=== PATIENT | male | born 1965 | race African-American/Black ===

== ENCOUNTER 2017-02-04 00:01 | Inpatient (IN) | payer OTHER ==
--- NOTE | 2017-02-04 00:38 | HP ---
COWS - Scale Resting Pulse: 1= DE 81-100 Sweatin=Flushed/Facial Moisture Restless Observation: 3= Extraneous Movement Pupil Size: 2= Moderately Dilated Bone or Joint Aches: 2= Severe Diffuse Aches Runny Nose/ Eye Tearin= Runny Nose/Eyes GI Upset > 30mins: 3= Vomiting/Diarrhea Tremor Observation: 2= Slight Tremor Visible Yawning Observation: 2= >3x During Session Anxiety or Irritability: 2=Irritable/Anxious Goose Flesh Skin: 0=Smooth Skin COWS Score: 21 CIWA Score - CIWA Score Nausea/Vomitin Muscle Tremors: 3 Anxiety: 3 Agitation: 3 Paroxysmal Sweats: 2 Orientation: 0-Oriented Tacttile Disturbances: 2-Mild Itch/Numbness/Burn Auditory Disturbances: 2-Mild Harshness/Frighten Visual Disturbances: 1-Very Mild Sensitivity Headache: 2-Mild CIWA-Ar Total Score: 21 Admission ROS BHS - HPI Chief Complaint: i need help to stop using heroin,alcohol,cocaine and marijuana Allergies/Adverse Reactions: Allergies Allergy/AdvReac Type Severity Reaction Status Date / Time No Known Allergies Allergy Verified 02/09/16 12:10 History of Present Illness: this 52 years old male iwth heroin,alcohol,cocaine and marijuana dependence, seeking detox,last detox [facility] 03/03/16 o 03/08/16 hypertension nicotine dependence longest period of sobriety 3 years Exam Limitations: No Limitations - Ebola screening Have you traveled outside of the country in the last 21 days: No (N) Have you had contact with anyone from an Ebola affected area: No Do you have a fever: No - Review of Systems Constitutional: Loss of Appetite, Malaise, Night Sweats, Changes in sleep, Weakness, Unintentional Wgt. Loss EENT: reports: Tearing, Nose Congestion Respiratory: reports: No Symptoms reported Cardiac: reports: No Symptoms Reported GI: reports: Diarrhea, Nausea, Vomiting, Abdominal cramping : reports: No Symptoms Reported Musculoskeletal: reports: Back Pain, Joint Pain, Muscle Pain, Joint Stiffness Integumentary: reports: Dryness Neuro: reports: Headache, Tremors Endocrine: reports: No Symptoms Reported Hematology: reports: No Symptoms Reported Psychiatric: reports: No Sypmtoms Reported, Judgement Intact, Mood/Affect Appropiate, Orientated x3 Patient History - Patient Medical History Hx Anemia: No Hx Asthma: No Hx Chronic Obstructive Pulmonary Disease (COPD): No Hx Cancer: No Hx Cardiac Disorders: No Hx Congestive Heart Failure: No Hx Hypertension: Yes (not currently on meds.) Hx Hypercholesterolemia: No Hx Pacemaker: No HX Cerebrovascular Accident: No Hx Seizures: No Hx Dementia: No Hx Diabetes: No Hx Gastrointestinal Disorders: No Hx Liver Disease: No Hx Genitourinary Disorders: No Hx Sexually Transmitted Disorders: No Hx Renal Disease (ESRD): No Hx Thyroid Disease: No Hx Human Immunodeficiency Virus (HIV): No (NEGATIVE HX last 2015 ) Hx Hepatitis C: No Hx Depression: No Hx Suicide Attempt: No Hx Bipolar Disorder: No Hx Schizophrenia: No Other Medical History: no suicidal,no homicidal - Patient Surgical History Past Surgical History: No Hx Neurologic Surgery: No Hx Cataract Extraction: No Hx Cardiac Surgery: No Hx Lung Surgery: No Hx Breast Surgery: No Hx Breast Biopsy: No Hx Abdominal Surgery: No Hx Appendectomy: No Hx Cholecystectomy: No Hx Genitourinary Surgery: No Hx Section: No Hx Orthopedic Surgery: No Anesthesia Reaction: No - PPD History Previous Implant?: Yes Documented Results: Negative w/o proof Date: 08/17/15 Results: 0 mm PPD to be Administered?: Yes - Smoking Cessation Smoking history: Current every day smoker Have you smoked in the past 12 months: Yes Aproximately how many cigarettes per day: 10 Hx Chewing Tobacco Use: No Initiated information on smoking cessation: Yes 'Breaking Loose' booklet given: 02/04/17 - Substance & Tx. History Hx Alcohol Use: Yes Hx Substance Use: Yes Substance Use Type: Alcohol, Cocaine, Heroin, Marijuana Hx Substance Use Treatment: Yes ([facility] 03/03/16 to 03/08/16) - Substances Abused Heroin Route: Inhalation Frequency: Daily Amount used: 6 bags/day Age of first use: 24 Date of Last Use: 02/03/17 Alcohol Route: Oral Frequency: Daily Amount used: 1pint of tj/22 ozs of beer Age of first use: 17 Date of Last Use: 02/03/17 Cocaine Route: Smoking Frequency: 3-6 times per week Amount used: 30$ Age of first use: 29 Date of Last Use: 02/03/17 Marijuana/Hashish Route: Smoking Frequency: Daily Amount used: 10$ Age of first use: 17 Date of Last Use: 02/03/17 Family Disease History - Family Disease History Family Disease History: Heart Disease: Father (HTN,CKD,alcohol,) Admission Physical Exam [facility] - Vital Signs Vital Signs: Vital Signs Temperature 98.3 F 02/04/17 00:55 Pulse Rate 88 02/04/17 00:55 Respiratory Rate 18 02/04/17 00:55 Blood Pressure 154/105 02/04/17 00:55 O2 Sat by Pulse Oximetry (%) - Physical General Appearance: Yes: Moderate Distress, Tremorous, Irritable, Sweating, Anxious HEENTM: Yes: Normal ENT Inspection, FRANCI, Pharynx Normal Respiratory: Yes: Within Normal Limits, Lungs Clear, Normal Breath Sounds Neck: Yes: Within Normal Limits, Supple, Trachea in good position Breast: Yes: Within Normal Limits Cardiology: Yes: Within Normal Limits, Regular Rhythm, Regular Rate, S1, S2 Abdominal: Yes: Within Normal Limits, Normal Bowel Sounds, Non Tender, Flat, Soft Genitourinary: Yes: Within Normal Limits Back: Yes: Muscle Spasm Musculoskeletal: Yes: Back pain, Joint Stiffness, Muscle Pain Extremities: Yes: Within Normal Limits, Normal Range of Motion, Tremors Neurological: Yes: branch sales and service representative II-XII NML intact, Alert, Motor Strength 5/5 Integumentary: Yes: Dry Lymphatic: Yes: Within Normal Limits - Diagnostic (1) Opioid dependence with withdrawal Current Visit: No Status: Acute (2) Alcohol dependence with uncomplicated withdrawal Current Visit: No Status: Acute (3) Cannabis dependence, uncomplicated Current Visit: No Status: Acute (4) Cocaine dependence, uncomplicated Current Visit: No Status: Acute (5) HTN (hypertension) Current Visit: No Status: Chronic Qualifiers: Hypertension type: essential hypertension (6) Weight loss Current Visit: Yes Status: Acute Cleared for Admission [facility] - Detox or Rehab [facility] Level of Care: Medically Managed Detox Regimen/Protocol: Methadone/Librium S Breath Alcohol Content Breath Alcohol Content: 0 Vital Signs - Vital Signs Vital Signs Refused: No Temperature: 98.3 F Temperature Source: Oral Pulse Rate: 88 Respiratory Rate: 18 Blood Pressure: 154/105 BP Location: Left Arm Blood Pressure Position: Sitting - Height Height: 5 ft 8 in - Weight Weight: 175 lb Body Mass Index (BMI): 26.6 Urine Drug Screen - Test Device Lot Number: [id number] Expiration Date: 10/11/18 - Control Is Test Valid: Yes - Results Drug Screen Negative: No Urine Drug Screen Results: THC-Marijuana, SHARI-Cocaine, OPI-Opiates, BZO- Benzodiazepines
[2017-02-04 00:55] VITALS: BMI 26.6
[2017-02-04] MEDS ORDERED: guaiFENesin/D-METHORPHAN HB 10 ML UNIT-DOSE CUPS PO PRN (01:06)
[2017-02-04] MEDS ORDERED: MAGNESIUM HYDROX 2400MG/30ML ORAL SUSPENSION 30 ML CUP PO PRN (01:06)
[2017-02-04] MEDS ORDERED: chlordiazePOXIDE HCL 25 MG CAPSULE PO ONE (01:06)
[2017-02-04] MEDS ORDERED: chlordiazePOXIDE HCL 25 MG CAPSULE PO PRN (01:06)
[2017-02-04] MEDS ORDERED: MENTHOL/PHENOL 1 EACH UD MM PRN (01:06)
[2017-02-04] MEDS ORDERED: LOPERAMIDE HCL 2 MG CAPSULE PO PRN (01:06)
[2017-02-04] MEDS ORDERED: MAGNESIUM CITRATE 300 ML BOTTLE PO PRN (01:06)
[2017-02-04] MEDS ORDERED: MAG HYDROX/AL HYDROX/SIMETH 30 ML UNIT-DOSE CUP PO PRN (01:06)
[2017-02-04] MEDS ORDERED: IBUPROFEN 400 MG TABLET (FP) PO PRN (01:06)
[2017-02-04] MEDS ORDERED: METHADONE HCL 10 MG TABLET (FOR DETOX USE ONLY) PO ONE ×3 (01:06→22:00)
[2017-02-04] MEDS ORDERED: P-EPHED 60MG/TRIPROLIDI 2.5MG TABLET PO PRN (01:06)
[2017-02-04] MEDS ORDERED: hydrOXYzine PAMOATE 25 MG CAPSULE (FP) PO PRN (01:06)
[2017-02-04] MEDS: diphenhydrAMINE HCL 50 MG CAPSULE PO PRN ×2 (02:30→22:20)
[2017-02-04] MEDS: chlordiazePOXIDE HCL 25 MG CAPSULE PO SCH ×4 (06:25→22:19)
[2017-02-04] MEDS: amLODIPine BESYLATE 5 MG TABLET (FP) PO SCH (10:10)
[2017-02-04] MEDS: NICOTINE POLACRILEX 2 MG GUM BUC PRN ×2 (10:11→18:10)
[2017-02-04] MEDS: NICOTINE 21 MG/24 HOURS TOPICAL PATCH TD SCH (10:11)
[2017-02-04] MEDS: LISINOPRIL 20 MG TABLET (FP) PO SCH (10:11)
[2017-02-04] MEDS: PRENATAL VITAMINS W/ FOLIC ACID TABLET (FP) PO SCH (10:11)
--- NOTE | 2017-02-04 11:10 | PN ---
[facility] CIWA - CIWA Score Nausea/Vomitin-No Nausea/No Vomiting Muscle Tremors: 3 Anxiety: 4-Mod. Anxious/Guarded Agitation: 2 Paroxysmal Sweats: 3 Orientation: 0-Oriented Tacttile Disturbances: 2-Mild Itch/Numbness/Burn Auditory Disturbances: 0-None Visual Disturbances: 3-Moderate Sensitivity Headache: 0-None Present CIWA-Ar Total Score: 17 BHS COWS - Scale Resting Pulse: 0= OR 80 or Below Sweatin= Chills/Flushing Restless Observation: 1= Difficult to Sit Still Pupil Size: 0= Normal to Room Light Bone or Joint Aches: 2= Severe Diffuse Aches Runny Nose/ Eye Tearin= Nasal Congestion GI Upset > 30mins: 1= Stomach Cramp Tremor Observation of Outstretched Hands: 2= Slight Tremor Visible Yawning Observation: 1= 1-2x During Session Anxiety or Irritability: 2=Irritable/Anxious Goose Flesh Skin: 3=Piloerection COWS Score: 14 S Progress Note (SOAP) Subjective: Sweating, Tremors, Anxious. Objective: PT. A & O X 3, OBSERVED AMBULATING ON UNIT. NO ACUTE DISTRESS. 02/04/17 11:06 Vital Signs Temperature 97.3 F L 02/04/17 09:38 Pulse Rate 69 02/04/17 09:38 Respiratory Rate 18 02/04/17 09:38 Blood Pressure 160/98 02/04/17 09:38 O2 Sat by Pulse Oximetry (%) ADMISSION LAB RESULTS PENDING. Assessment: 02/04/17 11:11 WITHDRAWAL SYMPTOMS. Plan: CONTINUE DETOX. CONTINUE TO MONITOR BP.
--- NOTE | 2017-02-04 20:24 | EKG ---
Test Reason : Blood Pressure : / mmHG Vent. Rate : 069 BPM Atrial Rate : 069 BPM P-R Int : 188 ms QRS Dur : 100 ms QT Int : 410 ms P-R-T Axes : 073 019 -01 degrees QTc Int : 439 ms NORMAL SINUS RHYTHM POSSIBLE LEFT ATRIAL ENLARGEMENT LEFT VENTRICULAR HYPERTROPHY ST-T ABNORMALITIES ABNORMAL ECG NO PREVIOUS ECGS AVAILABLE REPEAT EKG IF CLINICALLY INDICATED Confirmed by STEPHANIE SILVESTRE MD ([id number]) on 02/04/2017 8:24:29 PM Referred By: Maninder Combs Confirmed By:STEPHANIE SILVESTRE MD
[2017-02-04] MEDS: THIAMINE HCL 100 MG TABLET (FP) PO SCH (22:18)
[2017-02-05] MEDS: chlordiazePOXIDE HCL 25 MG CAPSULE PO SCH ×4 (05:48→22:13)
[2017-02-05] MEDS ORDERED: METHADONE HCL 5 MG TABLET (FOR DETOX USE ONLY) PO SCH (10:00)
[2017-02-05 10:10] LABS: MCH 30.3 pg (25.7-33.7); MCHC 33.5 g/dl (32.0-35.9); MEAN CELL VOLUME 90.5 fl (80-96); PLATELET COUNT 207 K/MM3 (134-434); RDW 13.9 % (11.9-15.9); WHITE BLOOD COUNT 8.9 K/mm3 (4.0-10.0)
--- NOTE | 2017-02-05 10:12 | PN ---
[facility] CIWA - CIWA Score Nausea/Vomitin-No Nausea/No Vomiting Muscle Tremors: 3 Anxiety: 3 Agitation: 3 Paroxysmal Sweats: 1-Minimal Palms Moist Orientation: 0-Oriented Tacttile Disturbances: 0-None Auditory Disturbances: 0-None Visual Disturbances: 0-None Headache: 0-None Present CIWA-Ar Total Score: 10 S COWS - Scale Resting Pulse: 0= SC 80 or Below Sweatin= Chills/Flushing Restless Observation: 3= Extraneous Movement Pupil Size: 2= Moderately Dilated Bone or Joint Aches: 1= Mild Discomfort Runny Nose/ Eye Tearin= None GI Upset > 30mins: 0= None Tremor Observation of Outstretched Hands: 2= Slight Tremor Visible Yawning Observation: 2= >3x During Session Anxiety or Irritability: 2=Irritable/Anxious Goose Flesh Skin: 0=Smooth Skin COWS Score: 13 S Progress Note (SOAP) Subjective: ANXIETY,SWEATS,FATIGUE. Objective: 02/05/17 10:11 Vital Signs Temperature 96.7 F L 02/05/17 09:46 Pulse Rate 71 02/05/17 09:46 Respiratory Rate 18 02/05/17 09:46 Blood Pressure 140/96 02/05/17 09:46 O2 Sat by Pulse Oximetry (%) LABS PENDING Assessment: 02/05/17 10:11 WITHDRAWAL SX Plan: CONTINUE DETOX
[2017-02-05] MEDS: LISINOPRIL 20 MG TABLET (FP) PO SCH (10:16)
[2017-02-05] MEDS: amLODIPine BESYLATE 5 MG TABLET (FP) PO SCH (10:17)
[2017-02-05] MEDS: PRENATAL VITAMINS W/ FOLIC ACID TABLET (FP) PO SCH (10:17)
[2017-02-05] MEDS: NICOTINE 21 MG/24 HOURS TOPICAL PATCH TD SCH (10:17)
[2017-02-05 10:24] LABS: ALK PHOS 63 U/L (45-117); ANION GAP 6 (8-16); BILIRUBIN,TOTAL 0.3 mg/dL (0.2-1.0); CALCIUM 8.4 mg/dL (8.5-10.1); CO2 29 mmol/L (21-32); CREATININE 0.9 mg/dL (0.7-1.3); GLUCOSE,RANDOM 74 mg/dL (74-106); SGOT/AST 10 U/L (15-37); SGPT/ALT 17 U/L (12-78); TOT PROT 5.9 g/dl (6.4-8.2)
[2017-02-05 13:28] LABS: URINE APPEARANCE CLEAR; URINE BILIRUBIN NEGATIVE (NEGATIVE); URINE BLOOD NEGATIVE (NEGATIVE); URINE COLOR STRAW; URINE GLUCOSE (UA) NEGATIVE (NEGATIVE); URINE KETONE NEGATIVE (NEGATIVE); URINE NITRITE NEGATIVE (NEGATIVE); URINE PROTEIN NEGATIVE (NEGATIVE); URINE UROBILINOGEN NEGATIVE mg/dL (0.2-1.0)
[2017-02-05 17:20] LABS: URINE LEUK ESTERASE Negative (NEGATIVE)
[2017-02-05] MEDS: NICOTINE POLACRILEX 2 MG GUM BUC PRN (18:10)
[2017-02-05] MEDS: THIAMINE HCL 100 MG TABLET (FP) PO SCH (22:13)
[2017-02-05] MEDS: diphenhydrAMINE HCL 50 MG CAPSULE PO PRN (22:14)
[2017-02-06] MEDS: chlordiazePOXIDE 5 MG CAPSULE PO SCH ×4 (05:51→22:20)
--- NOTE | 2017-02-06 09:49 | PN ---
BHS Progress Note (SOAP) Subjective: DECREASED ANXIETY,SWEATS. ALERT O X 3. NAD. Objective: 02/06/17 09:48 Vital Signs Temperature 98.9 F 02/06/17 09:09 Pulse Rate 69 02/06/17 09:09 Respiratory Rate 22 02/06/17 09:09 Blood Pressure 149/91 02/06/17 09:09 O2 Sat by Pulse Oximetry (%) Laboratory Last Values WBC 8.9 K/mm3 (4.0-10.0) 02/05/17 07:00 RBC 4.17 M/mm3 (4.00-5.60) 02/05/17 07:00 Hgb 12.7 GM/dL (11.7-16.9) 02/05/17 07:00 Hct 37.8 % (35.4-49) 02/05/17 07:00 MCV 90.5 fl (80-96) 02/05/17 07:00 MCH 30.3 pg (25.7-33.7) 02/05/17 07:00 MCHC 33.5 g/dl (32.0-35.9) 02/05/17 07:00 RDW 13.9 % (11.9-15.9) 02/05/17 07:00 Plt Count 207 K/MM3 (134-434) 02/05/17 07:00 MPV 10.0 fl (7.5-11.1) 02/05/17 07:00 Sodium 140 mmol/L (136-145) 02/05/17 07:00 Potassium 4.3 mmol/L (3.5-5.1) 02/05/17 07:00 Chloride 105 mmol/L (98-107) 02/05/17 07:00 Carbon Dioxide 29 mmol/L (21-32) 02/05/17 07:00 Anion Gap 6 (8-16) L 02/05/17 07:00 BUN 12 mg/dL (7-18) 02/05/17 07:00 Creatinine 0.9 mg/dL (0.7-1.3) 02/05/17 07:00 Creat Clearance w eGFR > 60 (>60) 02/05/17 07:00 Random Glucose 74 mg/dL (74-106) 02/05/17 07:00 Calcium 8.4 mg/dL (8.5-10.1) L 02/05/17 07:00 Total Bilirubin 0.3 mg/dL (0.2-1.0) D 02/05/17 07:00 AST 10 U/L (15-37) L D 02/05/17 07:00 ALT 17 U/L (12-78) 02/05/17 07:00 Alkaline Phosphatase 63 U/L (45-117) 02/05/17 07:00 Total Protein 5.9 g/dl (6.4-8.2) L 02/05/17 07:00 Albumin 3.0 g/dl (3.4-5.0) L 02/05/17 07:00 Urine Color Straw 02/05/17 09:50 Urine Appearance Clear 02/05/17 09:50 Urine pH 6.0 (5.0-8.0) 02/05/17 09:50 Ur Specific [place] <= 1.005 (1.005-1.025) 02/05/17 09:50 Urine Protein Negative (NEGATIVE) 02/05/17 09:50 Urine Glucose (UA) Negative (NEGATIVE) 02/05/17 09:50 Urine Ketones Negative (NEGATIVE) 02/05/17 09:50 Urine Blood Negative (NEGATIVE) 02/05/17 09:50 Urine Nitrite Negative (NEGATIVE) 02/05/17 09:50 Urine Bilirubin Negative (NEGATIVE) 02/05/17 09:50 Urine Urobilinogen Negative mg/dL (0.2-1.0) 02/05/17 09:50 Ur Leukocyte Esterase Negative (NEGATIVE) 02/05/17 09:50 RPR Titer Nonreactive (NONREACTIVE) 02/05/17 07:00 Assessment: 02/06/17 09:49 WITHDRAWAL SX Plan: CONTINUE DETOX
[2017-02-06] MEDS: METHADONE HCL 5 MG TABLET (FOR DETOX USE ONLY) PO SCH (10:09)
[2017-02-06] MEDS: amLODIPine BESYLATE 5 MG TABLET (FP) PO SCH (10:09)
[2017-02-06] MEDS: LISINOPRIL 20 MG TABLET (FP) PO SCH (10:09)
[2017-02-06] MEDS: PRENATAL VITAMINS W/ FOLIC ACID TABLET (FP) PO SCH (10:09)
[2017-02-06] MEDS: NICOTINE 21 MG/24 HOURS TOPICAL PATCH TD SCH (10:10)
[2017-02-06] MEDS: diphenhydrAMINE HCL 50 MG CAPSULE PO PRN (22:21)
[2017-02-06] MEDS: THIAMINE HCL 100 MG TABLET (FP) PO SCH (22:22)
[2017-02-07] MEDS: chlordiazePOXIDE HCL 10 MG CAPSULE PO SCH ×4 (06:01→22:21)
[2017-02-07] MEDS: PRENATAL VITAMINS W/ FOLIC ACID TABLET (FP) PO SCH (10:15)
[2017-02-07] MEDS: NICOTINE 21 MG/24 HOURS TOPICAL PATCH TD SCH (10:15)
[2017-02-07] MEDS: LISINOPRIL 20 MG TABLET (FP) PO SCH (10:15)
[2017-02-07] MEDS: METHADONE HCL 5 MG TABLET (FOR DETOX USE ONLY) PO SCH (10:15)
[2017-02-07] MEDS: amLODIPine BESYLATE 5 MG TABLET (FP) PO SCH (10:15)
--- NOTE | 2017-02-07 11:58 | PN ---
BHS Progress Note (SOAP) Subjective: nausea, sweats, interrupted sleep, anxiety Objective: 02/07/17 11:57 Vital Signs - 8 hr 02/07/17 02/07/17 06:08 10:00 Temperature 97.1 F L 97.3 F L Pulse Rate 68 69 Respiratory 20 18 Rate Blood Pressure 152/91 142/91 Laboratory Tests 02/05/17 02/05/17 02/05/17 07:00 07:00 07:00 WBC 8.9 RBC 4.17 Hgb 12.7 Hct 37.8 MCV 90.5 MCH 30.3 MCHC 33.5 RDW 13.9 Plt Count 207 MPV 10.0 Sodium 140 Potassium 4.3 Chloride 105 Carbon Dioxide 29 Anion Gap 6 L BUN 12 Creatinine 0.9 Creat Clearance w eGFR > 60 Random Glucose 74 Calcium 8.4 L Total Bilirubin 0.3 D AST 10 L D ALT 17 Alkaline Phosphatase 63 Total Protein 5.9 L Albumin 3.0 L Urine Color Urine Appearance Urine pH Ur Specific [place] Urine Protein Urine Glucose (UA) Urine Ketones Urine Blood Urine Nitrite Urine Bilirubin Urine Urobilinogen Ur Leukocyte Esterase RPR Titer Nonreactive 02/05/17 09:50 WBC RBC Hgb Hct MCV MCH MCHC RDW Plt Count MPV Sodium Potassium Chloride Carbon Dioxide Anion Gap BUN Creatinine Creat Clearance w eGFR Random Glucose Calcium Total Bilirubin AST ALT Alkaline Phosphatase Total Protein Albumin Urine Color Straw Urine Appearance Clear Urine pH 6.0 Ur Specific [place] <= 1.005 Urine Protein Negative Urine Glucose (UA) Negative Urine Ketones Negative Urine Blood Negative Urine Nitrite Negative Urine Bilirubin Negative Urine Urobilinogen Negative Ur Leukocyte Esterase Negative RPR Titer Assessment: 02/07/17 11:57 withdrawal sx Plan: cont detox
[2017-02-07] MEDS: ACETAMINOPHEN 325 MG TABLET (FP) PO PRN (18:07)
[2017-02-07] MEDS: diphenhydrAMINE HCL 50 MG CAPSULE PO PRN (21:41)
[2017-02-07] MEDS: THIAMINE HCL 100 MG TABLET (FP) PO SCH (21:41)
[2017-02-08] MEDS ORDERED: cloNIDine HCL 0.1 MG TABLET PO ONE (07:09)
[2017-02-08] MEDS ORDERED: METHADONE HCL 10 MG TABLET (FOR DETOX USE ONLY) PO SCH (10:00)
[2017-02-08] MEDS: LISINOPRIL 20 MG TABLET (FP) PO SCH (10:08)
[2017-02-08] MEDS: PRENATAL VITAMINS W/ FOLIC ACID TABLET (FP) PO SCH (10:08)
[2017-02-08] MEDS: amLODIPine BESYLATE 5 MG TABLET (FP) PO SCH (10:09)
[2017-02-08] MEDS: NICOTINE 21 MG/24 HOURS TOPICAL PATCH TD SCH (10:10)
[2017-02-08] MEDS: ACETAMINOPHEN 325 MG TABLET (FP) PO PRN (13:12)
--- NOTE | 2017-02-08 16:25 | PN ---
BHS Progress Note (SOAP) Subjective: Body Aches, Fatigue. Objective: PT. A & O X 3. NO ACUTE DISTRESS. PATIENT DENIES CHEST PAIN. 02/08/17 16:23 Vital Signs Temperature 96.9 F L 02/08/17 14:26 Pulse Rate 65 02/08/17 14:26 Respiratory Rate 18 02/08/17 14:26 Blood Pressure 142/72 02/08/17 14:26 O2 Sat by Pulse Oximetry (%) Laboratory Tests 02/05/17 02/05/17 02/05/17 07:00 07:00 07:00 WBC 8.9 RBC 4.17 Hgb 12.7 Hct 37.8 MCV 90.5 MCH 30.3 MCHC 33.5 RDW 13.9 Plt Count 207 MPV 10.0 Sodium 140 Potassium 4.3 Chloride 105 Carbon Dioxide 29 Anion Gap 6 L BUN 12 Creatinine 0.9 Creat Clearance w eGFR > 60 Random Glucose 74 Calcium 8.4 L Total Bilirubin 0.3 D AST 10 L D ALT 17 Alkaline Phosphatase 63 Total Protein 5.9 L Albumin 3.0 L Urine Color Urine Appearance Urine pH Ur Specific [place] Urine Protein Urine Glucose (UA) Urine Ketones Urine Blood Urine Nitrite Urine Bilirubin Urine Urobilinogen Ur Leukocyte Esterase RPR Titer Nonreactive 02/05/17 09:50 WBC RBC Hgb Hct MCV MCH MCHC RDW Plt Count MPV Sodium Potassium Chloride Carbon Dioxide Anion Gap BUN Creatinine Creat Clearance w eGFR Random Glucose Calcium Total Bilirubin AST ALT Alkaline Phosphatase Total Protein Albumin Urine Color Straw Urine Appearance Clear Urine pH 6.0 Ur Specific [place] <= 1.005 Urine Protein Negative Urine Glucose (UA) Negative Urine Ketones Negative Urine Blood Negative Urine Nitrite Negative Urine Bilirubin Negative Urine Urobilinogen Negative Ur Leukocyte Esterase Negative RPR Titer LABS NOTED. Assessment: 02/08/17 16:24 WITHDRAWAL SYMPTOMS. Plan: CONTINUE DETOX.
[2017-02-08] MEDS: diphenhydrAMINE HCL 50 MG CAPSULE PO PRN (22:20)
[2017-02-08] MEDS: THIAMINE HCL 100 MG TABLET (FP) PO SCH (22:20)
[2017-02-09] MEDS ORDERED: METHADONE HCL 5 MG TABLET PO SCH (06:00)
[2017-02-09 09:32] VITALS: BP 141/90; PULSE 58; TEMP 97.4
--- NOTE | 2017-02-09 12:09 | DS ---
[facility] Detox Discharge Summary Admission Date: 02/04/17 Discharge Date: 02/09/17 - History Present History: Alcohol Dependence, Cannabis Dependence, Cocaine Dependence, Opioid Dependence Additional Comments: Patient requesting to stay another 24 hours because he feels that if he leaves today, he is going to use drugs. Ornamental Ironworker educated patient on importance of staying away from illicit drugs. We both spoke at lenght about the reason he came to detox and patient encouraged to think positive and to continue remaining drug free as it's a great start completing detox. 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 Patient appears anxious and technical publications writer recommends vistaril prn. Patient agreed to vistaril prn and stated that he now feels confident he can be discharged without returning to his drug use. Patient stated he has a place to stay and is now ready for discharge after speaking with this technical publications writer and feeling more confident. E-Rx for vistaril 50mg PO q8hr prn #30 sent to patient's pharmacy. Patient made aware that vistaril may cause drowsiness and he should not take it if he's going to drive. Ornamental Ironworker recommends taking it after he gets home from work prior to going to bed. F/U with your PCP in 1-2 weeks. - Physical Exam Results Vital Signs: Vital Signs Temperature 97.4 F L 02/09/17 09:32 Pulse Rate 58 L 02/09/17 09:32 Respiratory Rate 16 02/09/17 09:32 Blood Pressure 141/90 02/09/17 09:32 O2 Sat by Pulse Oximetry (%) Pertinent Admission Physical Exam Findings: Withdrawal symptoms Laboratory Tests 02/05/17 02/05/17 02/05/17 07:00 07:00 07:00 WBC 8.9 RBC 4.17 Hgb 12.7 Hct 37.8 MCV 90.5 MCH 30.3 MCHC 33.5 RDW 13.9 Plt Count 207 MPV 10.0 Sodium 140 Potassium 4.3 Chloride 105 Carbon Dioxide 29 Anion Gap 6 L BUN 12 Creatinine 0.9 Creat Clearance w eGFR > 60 Random Glucose 74 Calcium 8.4 L Total Bilirubin 0.3 D AST 10 L D ALT 17 Alkaline Phosphatase 63 Total Protein 5.9 L Albumin 3.0 L Urine Color Urine Appearance Urine pH Ur Specific [place] Urine Protein Urine Glucose (UA) Urine Ketones Urine Blood Urine Nitrite Urine Bilirubin Urine Urobilinogen Ur Leukocyte Esterase RPR Titer Nonreactive 02/05/17 09:50 WBC RBC Hgb Hct MCV MCH MCHC RDW Plt Count MPV Sodium Potassium Chloride Carbon Dioxide Anion Gap BUN Creatinine Creat Clearance w eGFR Random Glucose Calcium Total Bilirubin AST ALT Alkaline Phosphatase Total Protein Albumin Urine Color Straw Urine Appearance Clear Urine pH 6.0 Ur Specific [place] <= 1.005 Urine Protein Negative Urine Glucose (UA) Negative Urine Ketones Negative Urine Blood Negative Urine Nitrite Negative Urine Bilirubin Negative Urine Urobilinogen Negative Ur Leukocyte Esterase Negative RPR Titer Labs noted - Treatment Hospital Course: Detox Protocol Followed, Detoxed Safely, Responded well, Discharged Condition Good - Medication Discharge Medications: Ambulatory Orders Amlodipine Besylate/Benazepril [Lotrel 5-40 mg Capsule] 1 cap PO AM 03/03/16 Hydroxyzine Pamoate [Vistaril -] 50 mg PO Q8H PRN #30 capsule 02/09/17 - Diagnosis (1) Alcohol dependence with uncomplicated withdrawal Status: Acute (2) Cannabis dependence, uncomplicated Status: Chronic (3) Cocaine dependence, uncomplicated Status: Chronic (4) Opioid dependence with withdrawal Status: Acute (5) HTN (hypertension) Status: Chronic Qualifiers: Hypertension type: essential hypertension (6) Nicotine dependence Status: Chronic - AMA Did Patient Leave Against Medical Advice: No (F/U with your PCP in 1-2 weeks, vistaril Rx sent to pharmacy)
--- NOTE | 2017-02-11 11:28 | PN ---
[facility] Progress Note Note: Patient was Discharged from Detox Unit on 02/09/2017. Patient called Unit directly today stating that he was taking Lotrel, 5-40 mg, prior to admission to Detox, and he requested that a prescription for this medication be sent to his pharmacy ([facility], [place], [place] Medical Provider who Discharged patient on 02/09/2017 did not send prescription for medication to pharmacy at that time. However, according to Pharmacist at [facility], patient did not ever receive prescription for Lotrel in past. Patient was previously prescribed Lisinopril / HCTZ (20 / 12.5 mg) Daily and Amlodipine , 10 mg PO Daily; however, these medications were last filled by patient in August. Patient advised to return to [facility] for further evaluation and assessment. Patient notes that he will be going for appointment with [facility] Dr. Jackson ([facility], [place] today at 4 PM for medical evaluation. Kelsey Inman NP
== END 2017-02-09 09:43 | disposition home or self-care (01) | DRG 773 ==
LOC: YASAS 00:01 → Y3N 00:56
PROVIDERS: ADMIT Internal Medicine; ATTEND Internal Medicine
PROC: HZ2ZZZZ Detoxification Services for Substance Abuse Treatment (ICD-10-PCS; principal; 2017-02-04)
DX: F11.23 Opioid dependence with withdrawal (principal); F10.230 Alcohol dependence with withdrawal, uncomplicated; F14.20 Cocaine dependence, uncomplicated; F12.20 Cannabis dependence, uncomplicated; F17.210 Nicotine dependence, cigarettes, uncomplicated; I10 Essential (primary) hypertension; Z87.898 Personal history of other specified conditions
CPT/HCPCS: 36415; 80053; 81003; 85027; 86593; 93005; 93010

== ENCOUNTER 2017-07-18 11:19 | Inpatient (IN) | payer OTHER ==
[2017-07-18 15:38] VITALS: BMI 25.0
--- NOTE | 2017-07-18 16:19 | HP ---
COWS - Scale Resting Pulse: 0= [place] 80 or Below Sweatin=Flushed/Facial Moisture Restless Observation: 1= Difficult to Sit Still Pupil Size: 1= Pupils >than Normal Bone or Joint Aches: 2= Severe Diffuse Aches Runny Nose/ Eye Tearin= Nasal Congestion GI Upset > 30mins: 1= Stomach Cramp Tremor Observation: 2= Slight Tremor Visible Yawning Observation: 1= 1-2x During Session Anxiety or Irritability: 2=Irritable/Anxious Goose Flesh Skin: 0=Smooth Skin COWS Score: 13 CIWA Score - CIWA Score Nausea/Vomitin-Mild Nausea/No Vomiting Muscle Tremors: 2 Anxiety: 3 Agitation: 2 Paroxysmal Sweats: 2 Orientation: 1-Uncertain about Date Tacttile Disturbances: 0-None Auditory Disturbances: 0-None Visual Disturbances: 0-None Headache: 2-Mild CIWA-Ar Total Score: 13 Admission ROS BHS - HPI Chief Complaint: WITHDRAWAL SYMPTOMS Allergies/Adverse Reactions: Allergies Allergy/AdvReac Type Severity Reaction Status Date / Time No Known Allergies Allergy Verified 07/18/17 15:31 History of Present Illness: 52 Y.O. MAN WITH AN EXTENSIVE HISTORY OF ALCOHOL AND HEROIN DEPENDENCE IS HERE SEEKING DETOX. HE HAS HAD MULTIPLE ADMISSIONS HERE WITH HIS LAST BEING IN 2017. LONGEST PERIOD CLEAN HAS BEEN 3 YEARS. WAS DISCHARGED TODAY FROM [facility] FOR CHEST PAIN; HE WAS MEDICALLY CLEARED AND DISCHARGED. Exam Limitations: No Limitations - Ebola screening Have you traveled outside of the country in the last 21 days: No Have you had contact with anyone from an Ebola affected area: No Have you been sick,other than usual withdrawal symptoms: No Do you have a fever: No - Review of Systems Constitutional: Chills, Loss of Appetite, Changes in sleep, Unintentional Wgt. Loss EENT: reports: Nose Congestion Respiratory: reports: Cough, Shortness of Breath Cardiac: reports: Chest Pain GI: reports: Abdominal cramping : reports: No Symptoms Reported Musculoskeletal: reports: No Symptoms Reported Integumentary: reports: No Symptoms Reported Neuro: reports: Headache, Tremors Endocrine: reports: Excessive Sweating Hematology: reports: No Symptoms Reported Other Systems: Reviewed and Negative Patient History - Patient Medical History Hx Anemia: No Hx Asthma: No Hx Chronic Obstructive Pulmonary Disease (COPD): No Hx Cancer: No Hx Cardiac Disorders: No Hx Congestive Heart Failure: No Hx Hypertension: Yes Hx Hypercholesterolemia: No Hx Pacemaker: No HX Cerebrovascular Accident: No Hx Seizures: No Hx Dementia: No Hx Diabetes: No Hx Gastrointestinal Disorders: No Hx Liver Disease: No Hx Genitourinary Disorders: No Hx Sexually Transmitted Disorders: Yes (gonorrhea in 1995) Hx Renal Disease (ESRD): No Hx Thyroid Disease: No Hx Human Immunodeficiency Virus (HIV): No (NEGATIVE HX last 2015 ) Hx Hepatitis C: No Hx Depression: No Hx Suicide Attempt: No Hx Bipolar Disorder: No Hx Schizophrenia: No - Patient Surgical History Past Surgical History: No Hx Neurologic Surgery: No Hx Cataract Extraction: No Hx Cardiac Surgery: No Hx Lung Surgery: No Hx Breast Surgery: No Hx Breast Biopsy: No Hx Abdominal Surgery: No Hx Appendectomy: No Hx Cholecystectomy: No Hx Genitourinary Surgery: No Hx Section: No Hx Orthopedic Surgery: No Anesthesia Reaction: No - PPD History Previous Implant?: Yes Documented Results: Negative w/proof Implanted On Prior R Admission?: Yes Date: 02/06/17 Results: 0 mm PPD to be Administered?: No - Reproductive History Patient is a Female of Child Bearing Age (11 -55 yrs old): No - Smoking Cessation Smoking history: Current every day smoker Have you smoked in the past 12 months: Yes Aproximately how many cigarettes per day: 20 Hx Chewing Tobacco Use: No Initiated information on smoking cessation: Yes 'Breaking Loose' booklet given: 07/18/17 - Substance & Tx. History Hx Alcohol Use: Yes Hx Substance Use: Yes Substance Use Type: Alcohol, Cocaine, Heroin, Marijuana Hx Substance Use Treatment: Yes (DETOX: 01/2018) - Substances Abused Heroin Route: Inhalation Frequency: Daily Amount used: 15 bags Age of first use: 22 Date of Last Use: 07/16/17 Crack Route: Smoking Frequency: Daily Amount used: $60-70 Age of first use: 24 Date of Last Use: 07/16/17 Alcohol-alexandra/beer Route: Oral Frequency: Daily Amount used: 40 oz.)/1-6 pk. (12 oz.) Age of first use: 17 Date of Last Use: 07/16/17 Marijuana Route: Smoking Frequency: Daily Amount used: $30 Age of first use: 16 Date of Last Use: 07/16/17 Family Disease History - Family Disease History Family Disease History: Heart Disease: Father (HTN,CKD,alcohol,) Admission Physical Exam [facility] - Vital Signs Vital Signs: Vital Signs - 24 hr 07/18/17 15:35 Temperature 97.1 F L Pulse Rate 68 Respiratory 16 Rate Blood Pressure 171/100 - Physical General Appearance: Yes: Irritable, Sweating, Anxious HEENTM: Yes: Hearing grossly Normal, Normal ENT Inspection, Normocephalic Respiratory: Yes: Chest Non-Tender, Lungs Clear, Normal Breath Sounds, No Respiratory Distress Neck: Yes: No masses,lesions,Nodules, Trachea in good position Breast: Yes: Breast Exam Deferred Cardiology: Yes: Regular Rhythm, Regular Rate Abdominal: Yes: Normal Bowel Sounds, Non Tender, Flat Genitourinary: Yes: Other (NO COMPLAINTS REPORTED) Back: Yes: Normal Inspection Musculoskeletal: Yes: full range of Motion, Gait Steady, Pelvis Stable Extremities: Yes: Normal Capillary Refill, Normal Inspection, Non-Tender Neurological: Yes: Fully Oriented, Alert, Normal Mood/Affect, Normal Response Integumentary: Yes: Normal Color, Dry, Warm Lymphatic: Yes: Within Normal Limits - Diagnostic (1) Alcohol dependence with uncomplicated withdrawal Current Visit: Yes Status: Chronic (2) Opioid dependence with withdrawal Current Visit: Yes Status: Chronic (3) Weight loss Current Visit: Yes Status: Acute (4) Cannabis dependence, uncomplicated Current Visit: Yes Status: Chronic (5) Cocaine dependence, uncomplicated Current Visit: Yes Status: Chronic (6) HTN (hypertension) Current Visit: Yes Status: Chronic Qualifiers: Hypertension type: essential hypertension (7) Nicotine dependence Current Visit: Yes Status: Chronic Cleared for Admission [facility] - Detox or Rehab [facility] Level of Care: Medically Managed Detox Regimen/Protocol: Methadone/Librium Claeared for Rehab Admission: No [facility] Breath Alcohol Content Breath Alcohol Content: 0 Urine Drug Screen - Results Drug Screen Negative: No Urine Drug Screen Results: THC-Marijuana, SHARI-Cocaine, OPI-Opiates
[2017-07-18] MEDS ORDERED: IBUPROFEN 400 MG TABLET (FP) PO PRN (16:28)
[2017-07-18] MEDS ORDERED: ACETAMINOPHEN 325 MG TABLET (FP) PO PRN (16:28)
[2017-07-18] MEDS ORDERED: hydrOXYzine PAMOATE 50 MG CAPSULE (FP) PO PRN (16:28)
[2017-07-18] MEDS ORDERED: MENTHOL/PHENOL 1 EACH UD MM PRN (16:28)
[2017-07-18] MEDS ORDERED: NICOTINE POLACRILEX 2 MG GUM BC PRN (16:28)
[2017-07-18] MEDS ORDERED: P-EPHED 60MG/TRIPROLIDI 2.5MG TABLET PO PRN (16:28)
[2017-07-18] MEDS ORDERED: MAGNESIUM CITRATE 300 ML BOTTLE PO PRN (16:28)
[2017-07-18] MEDS ORDERED: LOPERAMIDE HCL 2 MG CAPSULE PO PRN (16:28)
[2017-07-18] MEDS ORDERED: MAGNESIUM HYDROX 2400MG/30ML ORAL SUSPENSION 30 ML CUP PO PRN (16:28)
[2017-07-18] MEDS ORDERED: MAG HYDROX/AL HYDROX/SIMETH 30 ML UNIT-DOSE CUP PO PRN (16:28)
[2017-07-18] MEDS ORDERED: guaiFENesin/D-METHORPHAN HB 10 ML UNIT-DOSE CUPS PO PRN (16:28)
[2017-07-18] MEDS ORDERED: METHADONE HCL 10 MG TABLET (FOR DETOX USE ONLY) PO ONE ×2 (17:45→23:00)
[2017-07-18] MEDS: chlordiazePOXIDE HCL 25 MG CAPSULE PO PRN (18:39)
[2017-07-18] MEDS: amLODIPine BESYLATE 5 MG TABLET (FP) PO SCH (18:40)
[2017-07-18] MEDS: THIAMINE HCL 100 MG TABLET (FP) PO SCH (22:30)
[2017-07-18] MEDS: chlordiazePOXIDE HCL 25 MG CAPSULE PO SCH (22:30)
[2017-07-19 01:45] LABS: URINE APPEARANCE CLEAR; URINE BILIRUBIN NEGATIVE (<2.0 mg/dL); URINE BLOOD NEGATIVE (NEGATIVE); URINE COLOR STRAW; URINE GLUCOSE (UA) 1+ (NEGATIVE); URINE KETONE NEGATIVE (NEGATIVE); URINE LEUK ESTERASE NEGATIVE (NEGATIVE); URINE NITRITE NEGATIVE (NEGATIVE); URINE PROTEIN NEGATIVE (NEGATIVE); URINE UROBILINOGEN NEGATIVE mg/dL (0.2-1.0)
[2017-07-19] MEDS: chlordiazePOXIDE HCL 25 MG CAPSULE PO SCH ×4 (05:45→22:26)
[2017-07-19] MEDS ORDERED: cloNIDine HCL 0.1 MG TABLET PO ONE (06:32)
[2017-07-19] MEDS ORDERED: METHADONE HCL 10 MG TABLET (FOR DETOX USE ONLY) PO SCH (10:00)
[2017-07-19] MEDS ORDERED: LISINOPRIL 20 MG TABLET (FP) PO SCH (10:00)
--- NOTE | 2017-07-19 10:38 | EKG ---
Test Reason : Blood Pressure : / mmHG Vent. Rate : 065 BPM Atrial Rate : 065 BPM P-R Int : 176 ms QRS Dur : 104 ms QT Int : 428 ms P-R-T Axes : 069 013 004 degrees QTc Int : 445 ms NORMAL SINUS RHYTHM MINIMAL VOLTAGE CRITERIA FOR LVH, MAY BE NORMAL VARIANT BORDERLINE ECG WHEN COMPARED WITH ECG OF 04-FEB-2017 02:04, NO SIGNIFICANT CHANGE WAS FOUND Confirmed by IVÁN ELLIOTT, CHARLENE ([id number]) on 07/19/2017 10:38:03 AM Referred By: Confirmed By:CHARLENE MINOR MD
[2017-07-19] MEDS: LISINOPRIL 20 MG TABLET (FP) PO SCH (10:53)
[2017-07-19] MEDS: PRENATAL VITAMINS W/ FOLIC ACID TABLET (FP) PO SCH (10:53)
[2017-07-19] MEDS: NICOTINE 21 MG/24 HOURS TOPICAL PATCH TD SCH (10:54)
[2017-07-19] MEDS: amLODIPine BESYLATE 5 MG TABLET (FP) PO SCH (10:54)
[2017-07-19 11:13] LABS: HEMATOCRIT 35.2 % (35.4-49); HEMOGLOBIN 11.7 GM/dL (11.7-16.9); MCH 30.8 pg (25.7-33.7); MCHC 33.3 g/dl (32.0-35.9); MEAN CELL VOLUME 92.2 fl (80-96); MEAN PLT VOLUME 9.9 fl (7.5-11.1); RBC 3.82 M/mm3 (4.00-5.60); RDW 14.2 % (11.9-15.9); WHITE BLOOD COUNT 8.2 K/mm3 (4.0-10.0)
[2017-07-19 11:31] LABS: CHLORIDE 106 mmol/L (98-107); POTASSIUM 4.3 mmol/L (3.5-5.1); SODIUM 141 mmol/L (136-145)
[2017-07-19 11:46] LABS: ALBUMIN 2.8 g/dl (3.4-5.0); ANION GAP 5 (8-16); BILIRUBIN,TOTAL 0.2 mg/dL (0.2-1.0); BLOOD UREA NITROGEN 7 mg/dL (7-18); CALCIUM 8.2 mg/dL (8.5-10.1); CO2 30 mmol/L (21-32); CREATININE 0.8 mg/dL (0.7-1.3); GLUCOSE,RANDOM 83 mg/dL (74-106); SGOT/AST 18 U/L (15-37); SGPT/ALT 31 U/L (12-78); TOT PROT 6.1 g/dl (6.4-8.2)
[2017-07-19 12:14] LABS: ALK PHOS 74 U/L (45-117)
[2017-07-19] MEDS: chlordiazePOXIDE HCL 25 MG CAPSULE PO PRN (13:03)
--- NOTE | 2017-07-19 13:32 | PN ---
[facility] CIWA - CIWA Score Nausea/Vomitin-No Nausea/No Vomiting Muscle Tremors: 3 Anxiety: 3 Agitation: 2 Paroxysmal Sweats: 3 Orientation: 0-Oriented Tacttile Disturbances: 3-Moderate Itch/Numb/Burn Auditory Disturbances: 1-Very Mild Visual Disturbances: 2-Mild Sensitivity Headache: 0-None Present CIWA-Ar Total Score: 17 BHS COWS - Scale Resting Pulse: 0= [place] 80 or Below Sweatin= Chills/Flushing Restless Observation: 0= Sits Still Pupil Size: 0= Normal to Room Light Bone or Joint Aches: 0= None Runny Nose/ Eye Tearin= Runny Nose/Eyes GI Upset > 30mins: 0= None Tremor Observation of Outstretched Hands: 2= Slight Tremor Visible Yawning Observation: 2= >3x During Session Anxiety or Irritability: 2=Irritable/Anxious Goose Flesh Skin: 3=Piloerection COWS Score: 12 S Progress Note (SOAP) Subjective: Interrupted Sleep, Sweating, Tremors, Fatigue. Objective: PATIENT A & O X 3. NO ACUTE DISTRESS. 07/19/17 13:28 Vital Signs Temperature 98.4 F 07/19/17 13:26 Pulse Rate 64 07/19/17 13:26 Respiratory Rate 18 07/19/17 13:26 Blood Pressure 152/88 07/19/17 13:26 O2 Sat by Pulse Oximetry (%) Laboratory Tests 07/18/17 07/19/17 07/19/17 23:45 08:00 08:00 WBC 8.2 RBC 3.82 L Hgb 11.7 Hct 35.2 L MCV 92.2 MCH 30.8 MCHC 33.3 RDW 14.2 Plt Count 155 D MPV 9.9 Sodium 141 Potassium 4.3 Chloride 106 Carbon Dioxide 30 Anion Gap 5 L BUN 7 D Creatinine 0.8 Creat Clearance w eGFR > 60 Random Glucose 83 Calcium 8.2 L Total Bilirubin 0.2 D AST 18 D ALT 31 D Alkaline Phosphatase 74 Total Protein 6.1 L Albumin 2.8 L Urine Color Straw Urine Appearance Clear Urine pH 8.0 D Ur Specific [place] 1.012 Urine Protein Negative Urine Glucose (UA) 1+ H Urine Ketones Negative Urine Blood Negative Urine Nitrite Negative Urine Bilirubin Negative Urine Urobilinogen Negative Ur Leukocyte Esterase Negative LABS NOTED. RPR RESULT PENDING. 07/19/17 13:31 Assessment: 07/19/17 13:28 WITHDRAWAL SYMPTOMS. HYPERTENSION. 07/19/17 13:32 Plan: CONTINUE DETOX. INCREASE AMLODIPINE TO 10 MG PO DAILY FOR PERSISTENTLY ELEVATED BP.
[2017-07-19] MEDS ORDERED: amLODIPine BESYLATE 5 MG TABLET (FP) PO ONE (13:45)
[2017-07-19] MEDS: THIAMINE HCL 100 MG TABLET (FP) PO SCH (22:26)
[2017-07-20] MEDS: chlordiazePOXIDE HCL 25 MG CAPSULE PO SCH ×3 (06:34→18:00)
[2017-07-20] MEDS: amLODIPine BESYLATE 10 MG TABLET (FP) PO SCH (10:17)
[2017-07-20] MEDS: LISINOPRIL 20 MG TABLET (FP) PO SCH (10:17)
[2017-07-20] MEDS: METHADONE HCL 5 MG TABLET (FOR DETOX USE ONLY) PO SCH (10:17)
[2017-07-20] MEDS: PRENATAL VITAMINS W/ FOLIC ACID TABLET (FP) PO SCH (10:17)
[2017-07-20] MEDS: NICOTINE 21 MG/24 HOURS TOPICAL PATCH TD SCH (10:19)
--- NOTE | 2017-07-20 13:32 | PN ---
[facility] CIWA - CIWA Score Nausea/Vomitin Muscle Tremors: 4-Moderate,w/Arms Extend Anxiety: 4-Mod. Anxious/Guarded Agitation: 4-Moderately Restless Paroxysmal Sweats: 3 Orientation: 0-Oriented Tacttile Disturbances: 0-None Auditory Disturbances: 0-None Visual Disturbances: 0-None Headache: 1-Very Mild CIWA-Ar Total Score: 19 BHS COWS - Scale Resting Pulse: 0= [place] 80 or Below Sweatin=Flushed/Facial Moisture Restless Observation: 3= Extraneous Movement Pupil Size: 0= Normal to Room Light Bone or Joint Aches: 2= Severe Diffuse Aches Runny Nose/ Eye Tearin= Runny Nose/Eyes GI Upset > 30mins: 2= Nausea/Diarrhea Tremor Observation of Outstretched Hands: 2= Slight Tremor Visible Yawning Observation: 1= 1-2x During Session Anxiety or Irritability: 2=Irritable/Anxious Goose Flesh Skin: 0=Smooth Skin COWS Score: 16 S Progress Note (SOAP) Subjective: Sweating, anxious, interrupted sleep, chills, tremor Objective: 07/20/17 13:31 Last Vital Signs Temp Pulse Resp BP Pulse Ox 96.8 F L 62 18 163/93 07/20/17 09:18 07/20/17 09:18 07/20/17 09:18 07/20/17 09:18 Laboratory Tests 07/18/17 07/19/17 07/19/17 23:45 08:00 08:00 WBC 8.2 RBC 3.82 L Hgb 11.7 Hct 35.2 L MCV 92.2 MCH 30.8 MCHC 33.3 RDW 14.2 Plt Count Soda Tester MPV 9.9 Platelet Comment Marked plt clumping Sodium 141 Potassium 4.3 Chloride 106 Carbon Dioxide 30 Anion Gap 5 L BUN 7 D Creatinine 0.8 Creat Clearance w eGFR > 60 Random Glucose 83 Calcium 8.2 L Total Bilirubin 0.2 D AST 18 D ALT 31 D Alkaline Phosphatase 74 Total Protein 6.1 L Albumin 2.8 L Urine Color Straw Urine Appearance Clear Urine pH 8.0 D Ur Specific [place] 1.012 Urine Protein Negative Urine Glucose (UA) 1+ H Urine Ketones Negative Urine Blood Negative Urine Nitrite Negative Urine Bilirubin Negative Urine Urobilinogen Negative Ur Leukocyte Esterase Negative RPR Titer 07/19/17 08:00 WBC RBC Hgb Hct MCV MCH MCHC RDW Plt Count MPV Platelet Comment Sodium Potassium Chloride Carbon Dioxide Anion Gap BUN Creatinine Creat Clearance w eGFR Random Glucose Calcium Total Bilirubin AST ALT Alkaline Phosphatase Total Protein Albumin Urine Color Urine Appearance Urine pH Ur Specific [place] Urine Protein Urine Glucose (UA) Urine Ketones Urine Blood Urine Nitrite Urine Bilirubin Urine Urobilinogen Ur Leukocyte Esterase RPR Titer Nonreactive Labs noted Assessment: 07/20/17 13:32 Withdrawal symptoms Plan: Continue detox Encouraged to drink lots of water for hydration
[2017-07-20] MEDS: chlordiazePOXIDE HCL 25 MG CAPSULE PO PRN (14:47)
[2017-07-20] MEDS: THIAMINE HCL 100 MG TABLET (FP) PO SCH (22:16)
[2017-07-20] MEDS: chlordiazePOXIDE 5 MG CAPSULE PO SCH (22:16)
[2017-07-21] MEDS: chlordiazePOXIDE 5 MG CAPSULE PO SCH ×3 (05:12→16:50)
[2017-07-21] MEDS: METHADONE HCL 5 MG TABLET (FOR DETOX USE ONLY) PO SCH (10:17)
[2017-07-21] MEDS: NICOTINE 21 MG/24 HOURS TOPICAL PATCH TD SCH ×2 (10:17→11:36)
[2017-07-21] MEDS: amLODIPine BESYLATE 10 MG TABLET (FP) PO SCH (10:17)
[2017-07-21] MEDS: LISINOPRIL 20 MG TABLET (FP) PO SCH (10:17)
[2017-07-21] MEDS: PRENATAL VITAMINS W/ FOLIC ACID TABLET (FP) PO SCH (10:17)
--- NOTE | 2017-07-21 12:04 | PN ---
BHS Progress Note (SOAP) Subjective: sleep disturbance Sweats Abd cramp Objective: 07/21/17 12:03 A & O x 3 Steady gait No acute distress Vital Signs Temperature 98.2 F 07/21/17 09:12 Pulse Rate 75 07/21/17 09:12 Respiratory Rate 20 07/21/17 09:12 Blood Pressure 142/89 07/21/17 09:12 O2 Sat by Pulse Oximetry (%) Assessment: 07/21/17 12:04 withdrawal sx Plan: Continue detox
[2017-07-21] MEDS: THIAMINE HCL 100 MG TABLET (FP) PO SCH (22:01)
[2017-07-21] MEDS: chlordiazePOXIDE HCL 10 MG CAPSULE PO SCH (22:01)
[2017-07-21] MEDS: MELATONIN 5 MG TABLETS PO PRN (22:02)
[2017-07-22] MEDS: chlordiazePOXIDE HCL 10 MG CAPSULE PO SCH ×3 (05:14→17:39)
[2017-07-22] MEDS ORDERED: METHADONE HCL 10 MG TABLET (FOR DETOX USE ONLY) PO SCH (10:00)
[2017-07-22] MEDS: LISINOPRIL 20 MG TABLET (FP) PO SCH (10:24)
[2017-07-22] MEDS: PRENATAL VITAMINS W/ FOLIC ACID TABLET (FP) PO SCH (10:24)
[2017-07-22] MEDS: amLODIPine BESYLATE 10 MG TABLET (FP) PO SCH (10:24)
[2017-07-22] MEDS: NICOTINE 21 MG/24 HOURS TOPICAL PATCH TD SCH (10:25)
--- NOTE | 2017-07-22 12:17 | PN ---
BHS Progress Note (SOAP) Subjective: Tremors, Sweating, Fatigue. Objective: PATIENT A & O X 3, OBSERVED AMBULATING ON UNIT. NO ACUTE DISTRESS. PATIENT DENIES CHEST PAIN. Vital Signs Temperature 99.4 F 07/22/17 09:19 Pulse Rate 77 07/22/17 09:19 Respiratory Rate 18 07/22/17 09:19 Blood Pressure 153/98 07/22/17 09:19 O2 Sat by Pulse Oximetry (%) Laboratory Tests 07/18/17 07/19/17 07/19/17 23:45 08:00 08:00 WBC 8.2 RBC 3.82 L Hgb 11.7 Hct 35.2 L MCV 92.2 MCH 30.8 MCHC 33.3 RDW 14.2 Plt Count Stone Circular Sawyer MPV 9.9 Platelet Comment Marked plt clumping Sodium 141 Potassium 4.3 Chloride 106 Carbon Dioxide 30 Anion Gap 5 L BUN 7 D Creatinine 0.8 Creat Clearance w eGFR > 60 Random Glucose 83 Calcium 8.2 L Total Bilirubin 0.2 D AST 18 D ALT 31 D Alkaline Phosphatase 74 Total Protein 6.1 L Albumin 2.8 L Urine Color Straw Urine Appearance Clear Urine pH 8.0 D Ur Specific [place] 1.012 Urine Protein Negative Urine Glucose (UA) 1+ H Urine Ketones Negative Urine Blood Negative Urine Nitrite Negative Urine Bilirubin Negative Urine Urobilinogen Negative Ur Leukocyte Esterase Negative RPR Titer 07/19/17 08:00 WBC RBC Hgb Hct MCV MCH MCHC RDW Plt Count MPV Platelet Comment Sodium Potassium Chloride Carbon Dioxide Anion Gap BUN Creatinine Creat Clearance w eGFR Random Glucose Calcium Total Bilirubin AST ALT Alkaline Phosphatase Total Protein Albumin Urine Color Urine Appearance Urine pH Ur Specific [place] Urine Protein Urine Glucose (UA) Urine Ketones Urine Blood Urine Nitrite Urine Bilirubin Urine Urobilinogen Ur Leukocyte Esterase RPR Titer Nonreactive labs noted. 07/22/17 12:16 Assessment: 07/22/17 12:17 WITHDRAWAL SYMPTOMS. Plan: CONTINUE DETOX.
[2017-07-22] MEDS ORDERED: HYDROCHLOROTHIAZIDE 25 MG TABLET (FP) PO ONE (14:18)
[2017-07-22] MEDS ORDERED: cloNIDine HCL 0.1 MG TABLET PO ONE (14:21)
--- NOTE | 2017-07-22 14:24 | PN ---
BHS Progress Note Note: Clonidine, 0.1 MG PO X 1 and HCTZ, 25 mg PO X 1 now, then X 1 tomorrow AM ordered for persistently elevated BP. Kelsey Inman [employer]
[2017-07-22] MEDS ORDERED: HYDROCHLOROTHIAZIDE 25 MG TABLET (FP) PO SCH (22:00)
[2017-07-22] MEDS: THIAMINE HCL 100 MG TABLET (FP) PO SCH (22:27)
[2017-07-22] MEDS: MELATONIN 5 MG TABLETS PO PRN (22:27)
[2017-07-23] MEDS ORDERED: METHADONE HCL 5 MG TABLET (FOR DETOX USE ONLY) PO SCH (06:00)
[2017-07-23] MEDS ORDERED: HYDROCHLOROTHIAZIDE 25 MG TABLET (FP) PO ONE (07:00)
[2017-07-23] MEDS: LISINOPRIL 20 MG TABLET (FP) PO SCH (09:03)
[2017-07-23] MEDS: PRENATAL VITAMINS W/ FOLIC ACID TABLET (FP) PO SCH (09:03)
[2017-07-23] MEDS: NICOTINE 21 MG/24 HOURS TOPICAL PATCH TD SCH (09:03)
[2017-07-23] MEDS: amLODIPine BESYLATE 10 MG TABLET (FP) PO SCH (09:04)
[2017-07-23 09:41] VITALS: BP 143/82; PULSE 90; TEMP 97.2
--- NOTE | 2017-07-23 15:01 | PN ---
BHS Progress Note (SOAP) Subjective: Patient denies current Detox symptoms and reports that he is feeling well overall. Objective: PATIENT A & O X 3, OBSERVED AMBULATING ON UNIT. NO ACUTE DISTRESS. 07/23/17 14:59 Vital Signs Temperature 97.2 F L 07/23/17 09:40 Pulse Rate 90 07/23/17 09:40 Respiratory Rate 18 07/23/17 09:40 Blood Pressure 143/82 07/23/17 09:40 O2 Sat by Pulse Oximetry (%) Laboratory Tests 07/18/17 07/19/17 07/19/17 23:45 08:00 08:00 WBC 8.2 RBC 3.82 L Hgb 11.7 Hct 35.2 L MCV 92.2 MCH 30.8 MCHC 33.3 RDW 14.2 Plt Count Web User Experience Strategist MPV 9.9 Platelet Comment Marked plt clumping Sodium 141 Potassium 4.3 Chloride 106 Carbon Dioxide 30 Anion Gap 5 L BUN 7 D Creatinine 0.8 Creat Clearance w eGFR > 60 Random Glucose 83 Calcium 8.2 L Total Bilirubin 0.2 D AST 18 D ALT 31 D Alkaline Phosphatase 74 Total Protein 6.1 L Albumin 2.8 L Urine Color Straw Urine Appearance Clear Urine pH 8.0 D Ur Specific [place] 1.012 Urine Protein Negative Urine Glucose (UA) 1+ H Urine Ketones Negative Urine Blood Negative Urine Nitrite Negative Urine Bilirubin Negative Urine Urobilinogen Negative Ur Leukocyte Esterase Negative RPR Titer 07/19/17 08:00 WBC RBC Hgb Hct MCV MCH MCHC RDW Plt Count MPV Platelet Comment Sodium Potassium Chloride Carbon Dioxide Anion Gap BUN Creatinine Creat Clearance w eGFR Random Glucose Calcium Total Bilirubin AST ALT Alkaline Phosphatase Total Protein Albumin Urine Color Urine Appearance Urine pH Ur Specific [place] Urine Protein Urine Glucose (UA) Urine Ketones Urine Blood Urine Nitrite Urine Bilirubin Urine Urobilinogen Ur Leukocyte Esterase RPR Titer Nonreactive LABS NOTED. Assessment: 07/23/17 15:00 COMPLETION OF DETOX REGIMEN. 07/23/17 15:01 Plan: PATIENT SCHEDULED FOR DISCHARGE FROM DETOX TODAY. PATIENT WILL GO TO [facility] ([place], [place] FOR AFTERCARE.
--- NOTE | 2017-07-23 15:06 | DS ---
[facility] Detox Discharge Summary Admission Date: 07/18/17 Discharge Date: 07/23/17 - History Present History: Alcohol Dependence, Cannabis Dependence, Cocaine Dependence, Opioid Dependence Additional Comments: PATIENT GOING TO [facility] ([place], [place] FOR AFTERCARE. PATIENT ADVISED TO FOLLOW-UP WITH ADULT [employer]IST[employer] DIRECTOR DR. ARREDONDO ([place]) AFTER DISCHARGE FROM REHAB FOR GENERAL MEDICAL ASSESSMENT AND FOR HISTORY OF HYPERTENSION. PATIENT WAS DISCHARGED FROM DETOX UNIT IN STABLE MEDICAL CONDITION. Pertinent Past History: HTN, Weight Loss, Nicotine Dependence. - Physical Exam Results Vital Signs: Vital Signs Temperature 97.2 F L 07/23/17 09:40 Pulse Rate 90 07/23/17 09:40 Respiratory Rate 18 07/23/17 09:40 Blood Pressure 143/82 07/23/17 09:40 O2 Sat by Pulse Oximetry (%) Pertinent Admission Physical Exam Findings: WITHDRAWAL SYMPTOMS. Laboratory Tests 07/18/17 07/19/17 07/19/17 23:45 08:00 08:00 WBC 8.2 RBC 3.82 L Hgb 11.7 Hct 35.2 L MCV 92.2 MCH 30.8 MCHC 33.3 RDW 14.2 Plt Count Electronic Specialist MPV 9.9 Platelet Comment Marked plt clumping Sodium 141 Potassium 4.3 Chloride 106 Carbon Dioxide 30 Anion Gap 5 L BUN 7 D Creatinine 0.8 Creat Clearance w eGFR > 60 Random Glucose 83 Calcium 8.2 L Total Bilirubin 0.2 D AST 18 D ALT 31 D Alkaline Phosphatase 74 Total Protein 6.1 L Albumin 2.8 L Urine Color Straw Urine Appearance Clear Urine pH 8.0 D Ur Specific [place] 1.012 Urine Protein Negative Urine Glucose (UA) 1+ H Urine Ketones Negative Urine Blood Negative Urine Nitrite Negative Urine Bilirubin Negative Urine Urobilinogen Negative Ur Leukocyte Esterase Negative RPR Titer 07/19/17 08:00 WBC RBC Hgb Hct MCV MCH MCHC RDW Plt Count MPV Platelet Comment Sodium Potassium Chloride Carbon Dioxide Anion Gap BUN Creatinine Creat Clearance w eGFR Random Glucose Calcium Total Bilirubin AST ALT Alkaline Phosphatase Total Protein Albumin Urine Color Urine Appearance Urine pH Ur Specific [place] Urine Protein Urine Glucose (UA) Urine Ketones Urine Blood Urine Nitrite Urine Bilirubin Urine Urobilinogen Ur Leukocyte Esterase RPR Titer Nonreactive LABS NOTED. - Treatment Hospital Course: Detox Protocol Followed, Detoxed Safely, Responded well, Discharged Condition Good, Rehab Referral Accepted Patient has Accepted a Rehab Referral to: [facility] ([place], [place] - Medication Discharge Medications: Ambulatory Orders Amlodipine Besylate/Benazepril [Lotrel 5-40 mg Capsule] 1 cap PO AM 03/03/16 - Diagnosis (1) Weight loss Status: Acute (2) Alcohol dependence with uncomplicated withdrawal Status: Acute (3) Cannabis dependence, uncomplicated Status: Chronic (4) HTN (hypertension) Status: Chronic Qualifiers: Hypertension type: essential hypertension (5) Nicotine dependence Status: Chronic Qualifiers: Nicotine product type: cigarettes Substance use status: uncomplicated Qualified Code(s): F17.210 - Nicotine dependence, cigarettes, uncomplicated (6) Opioid dependence with withdrawal Status: Acute (7) Cocaine dependence, uncomplicated Status: Chronic - AMA Did Patient Leave Against Medical Advice: No
== END 2017-07-23 09:50 | disposition home or self-care (01) | DRG 773 ==
LOC: YASAS 11:19 → Y3N 17:17
PROVIDERS: ADMIT Internal Medicine; ATTEND Internal Medicine
PROC: HZ2ZZZZ Detoxification Services for Substance Abuse Treatment (ICD-10-PCS; principal; 2017-07-18)
DX: F11.23 Opioid dependence with withdrawal (principal); F10.230 Alcohol dependence with withdrawal, uncomplicated; F14.20 Cocaine dependence, uncomplicated; F12.20 Cannabis dependence, uncomplicated; F17.210 Nicotine dependence, cigarettes, uncomplicated; I10 Essential (primary) hypertension; Z87.438 Personal history of other diseases of male genital organs; Z87.898 Personal history of other specified conditions
CPT/HCPCS: 36415; 80053; 81003; 85027; 86593; 93005; 93010; J0735

== ENCOUNTER 2018-11-27 09:25 | Inpatient (IN) | payer OTHER ==
[2018-11-27 11:16] VITALS: BMI 26.9
--- NOTE | 2018-11-27 14:23 | HP ---
COWS - Scale Resting Pulse: 0= [place] 80 or Below Sweatin= No chills or Flushing Restless Observation: 1= Difficult to Sit Still Pupil Size: 1= Pupils >than Normal Bone or Joint Aches: 1= Mild Discomfort Runny Nose/ Eye Tearin= Constantly Teary/Runny GI Upset > 30mins: 0= None Tremor Observation: 1= Tremor [place], Not Seen Yawning Observation: 2= >3x During Session Anxiety or Irritability: 2=Irritable/Anxious Goose Flesh Skin: 0=Smooth Skin COWS Score: 12 CIWA Score - Admission Criteria [facility] Guidelines: Admission for Medically Managed Detox: Requires at least one of the followin. CIWA greater than 12 2. Seizures within the past 24 hours 3. Delirium tremens within the past 24 hours 4. Hallucinations within the past 24 hours 5. Acute intervention needed for co occurring medical disorder 6. Acute intervention needed for co occurring psychiatric disorder 7. Severe withdrawal that cannot be handled at a lower level of care (continued vomiting, continued diarrhea, abnormal vital signs) requiring intravenous medication and/or fluids 8. Admission [facility] Chief Complaint: Patient presents with Opiod withdawal symptoms. Allergies/Adverse Reactions: Allergies Allergy/AdvReac Type Severity Reaction Status Date / Time No Known Allergies Allergy Verified 11/27/18 11:01 History of Present Illness: Patient is known to [facility] due to previous admission with last admission 07/2017. Patient states he began sniffing heroin at age 29 and sniffs 10-11 bags daily. Last use was last night. Patient also takes 5-6 Oxycontin tablets, unsure of dose. Patient denies IVDA and longest period of sobriety 4-5 years. Patient denies hx of overdose, seizures and blackouts. Patient smokes marijuana when available. Urine drug screen + THC, MOP, Oxy. PMH includes HTN and tobacco use. Patient denies mental illness and SI/HI. Exam Limitations: No Limitations - Ebola screening Have you traveled outside of the country in the last 21 days: No (N) Have you had contact with anyone from an Ebola affected area: No Have you been sick,other than usual withdrawal symptoms: No Do you have a fever: No - Review of Systems Constitutional: No Symptoms Reported EENT: reports: Tearing, Nose Congestion Respiratory: reports: No Symptoms reported Cardiac: reports: No Symptoms Reported GI: reports: No Symptoms Reported : reports: No Symptoms Reported Musculoskeletal: reports: Joint Pain, Muscle Pain Integumentary: reports: Other (palms moist) Neuro: reports: Tremors (mild tremors felt) Endocrine: reports: No Symptoms Reported Hematology: reports: No Symptoms Reported Psychiatric: reports: Orientated x3, Anxious Patient History - Patient Medical History Hx Anemia: No Hx Asthma: No Hx Chronic Obstructive Pulmonary Disease (COPD): No Hx Cancer: No Hx Cardiac Disorders: No Hx Congestive Heart Failure: No Hx Hypertension: Yes Hx Hypercholesterolemia: No Hx Pacemaker: No HX Cerebrovascular Accident: No Hx Seizures: No Hx Dementia: No Hx Diabetes: No Hx Gastrointestinal Disorders: No Hx Liver Disease: No Hx Genitourinary Disorders: No Hx Sexually Transmitted Disorders: Yes (gonorrhea in 1995) Hx Renal Disease (ESRD): No Hx Thyroid Disease: No Hx Human Immunodeficiency Virus (HIV): No (NEGATIVE HX last 2018) Hx Hepatitis C: No Hx Depression: No Hx Suicide Attempt: No Hx Bipolar Disorder: No Hx Schizophrenia: No - Patient Surgical History Past Surgical History: No Hx Neurologic Surgery: No Hx Cataract Extraction: No Hx Cardiac Surgery: No Hx Lung Surgery: No Hx Breast Surgery: No Hx Breast Biopsy: No Hx Abdominal Surgery: No Hx Appendectomy: No Hx Cholecystectomy: No Hx Genitourinary Surgery: No Hx Orthopedic Surgery: No Anesthesia Reaction: No - PPD History Previous Implant?: Yes Documented Results: Negative w/proof Date: 02/06/17 Results: 0 mm PPD to be Administered?: No - Smoking Cessation Smoking history: Current every day smoker Have you smoked in the past 12 months: Yes Aproximately how many cigarettes per day: 20 Hx Chewing Tobacco Use: No Initiated information on smoking cessation: Yes 'Breaking Loose' booklet given: 11/27/18 - Substance & Tx. History Hx Alcohol Use: No Hx Substance Use: Yes Substance Use Type: Heroin, Marijuana, Opiates - Substances abused Oxycontin Substance route: Oral Frequency: Daily Amount used: 5-6 tablets daily (does not know MG of tablets) Age of first use: 52 Date of last use: 11/26/18 Heroin Substance route: Inhalation Frequency: Daily Amount used: 10-11 bags Age of first use: 29 Date of last use: 11/26/18 Family Disease History - Family Disease History Family Disease History: Heart Disease: Father (HTN,CKD,alcohol,) Admission Physical Exam [facility] - Vital Signs Vital Signs: Vital Signs - 24 hr 11/27/18 11:03 Temperature 98.7 F Pulse Rate 61 Respiratory 18 Rate Blood Pressure 161/87 - Physical General Appearance: Yes: No Apparent Distress, Appropriately Dressed, Anxious HEENTM: Yes: EOMI, Hearing grossly Normal, Normocephalic, Normal Voice, FRANCI, Pharynx Normal, Nasal Congestion, Other (tearing of eyes) Respiratory: Yes: Chest Non-Tender, Lungs Clear, Normal Breath Sounds, No Respiratory Distress, No Accessory Muscle Use Neck: Yes: No masses,lesions,Nodules, Supple, Trachea in good position Breast: Yes: Breast Exam Deferred Cardiology: Yes: Regular Rhythm, Regular Rate, S1, S2 Abdominal: Yes: Normal Bowel Sounds, Non Tender, Soft Genitourinary: Yes: Within Normal Limits Back: Yes: Normal Inspection, Muscle Spasm Musculoskeletal: Yes: full range of Motion, Gait Steady, Back pain, Muscle Pain Extremities: Yes: Normal Inspection, Normal Range of Motion, Non-Tender Neurological: Yes: mental hygienist II-XII NML intact, Fully Oriented, Alert, Motor Strength 5/5, Normal Response, Other (anxious) Integumentary: Yes: Normal Color, Warm, Moist Lymphatic: Yes: Within Normal Limits - Diagnostic (1) Opioid dependence with withdrawal Current Visit: Yes Status: Acute (2) Cannabis dependence, uncomplicated Current Visit: Yes Status: Chronic (3) HTN (hypertension) Current Visit: Yes Status: Chronic Qualifiers: Hypertension type: essential hypertension (4) Nicotine dependence Current Visit: Yes Status: Chronic Qualifiers: Nicotine product type: cigarettes Substance use status: uncomplicated Qualified Code(s): F17.210 - Nicotine dependence, cigarettes, uncomplicated Cleared for Admission [facility] - Detox or Rehab [facility] Level of Care: Medically Managed Detox Regimen/Protocol: Methadone Breathalyzer - Breathalyzer Breathalyzer: 0 Urine Drug Screen - Test Device Lot number: [id number] Expiration date: 09/11/20 - Control Is test valid?: Yes - Results Drug screen NEGATIVE: No Urine drug screen results: THC-Marijuana, MOP-Opiates, OXY-Oxycodone Inpatient Rehab Admission - Rehab Decision to Admit Inpatient rehab admission?: No
[2018-11-27] MEDS ORDERED: MENTHOL/PHENOL 1 EACH UD MM PRN (14:25)
[2018-11-27] MEDS ORDERED: MAGNESIUM CITRATE 300 ML BOTTLE PO PRN (14:25)
[2018-11-27] MEDS ORDERED: MAGNESIUM HYDROX 2400MG/30ML ORAL SUSPENSION 30 ML CUP PO PRN (14:25)
[2018-11-27] MEDS ORDERED: ACETAMINOPHEN 325 MG TABLET (FP) PO PRN ×2 (14:25)
[2018-11-27] MEDS ORDERED: hydrOXYzine HCL 25 MG TABLET (FP) PO PRN (14:25)
[2018-11-27] MEDS ORDERED: P-EPHED 60MG/TRIPROLIDI 2.5MG TABLET PO PRN (14:25)
[2018-11-27] MEDS ORDERED: NICOTINE POLACRILEX 2 MG GUM BUC PRN (14:25)
[2018-11-27] MEDS ORDERED: IBUPROFEN 400 MG TABLET (FP) PO PRN (14:25)
[2018-11-27] MEDS ORDERED: MAG HYDROX/AL HYDROX/SIMETH 30 ML UNIT-DOSE CUP PO PRN (14:25)
[2018-11-27] MEDS ORDERED: BISMUTH SUBSALICYLATE 262 MG/15 ML BTL PO PRN (14:25)
[2018-11-27] MEDS ORDERED: NALOXONE HCL 0.4 MG/ML VIAL IM PRN (14:29)
[2018-11-27] MEDS ORDERED: METHADONE HCL 10 MG TABLET (FOR DETOX USE ONLY) PO ONE (15:10)
[2018-11-27] MEDS: clonazePAM 0.5 MG TABLET PO PRN ×2 (16:05→22:17)
[2018-11-27 17:12] LABS: ALBUMIN 4.1 g/dl (3.4-5.0); BILIRUBIN,TOTAL 0.4 mg/dL (0.2-1); BLOOD UREA NITROGEN 9.9 mg/dL (7-18); CALCIUM 9.3 mg/dL (8.5-10.1); POTASSIUM 4.1 mmol/L (3.5-5.1); TOT PROT 7.6 g/dl (6.4-8.2)
[2018-11-27 17:15] LABS: HEMATOCRIT 40.1 % (35.4-49); HEMOGLOBIN 13.7 GM/dL (11.7-16.9); MCH 31.6 pg (25.7-33.7); MCHC 34.3 g/dl (32.0-35.9); MEAN PLT VOLUME 10.2 fl (7.5-11.1); PLATELET COUNT 227 K/MM3 (134-434); RBC 4.36 M/mm3 (4.00-5.60); RDW 13.5 % (11.9-15.9); WHITE BLOOD COUNT 9.6 K/mm3 (4.0-10.0)
[2018-11-27] MEDS: MELATONIN 5 MG TABLETS PO PRN (22:17)
[2018-11-27] MEDS: THIAMINE HCL 100 MG TABLET (FP) PO SCH (22:17)
[2018-11-27] MEDS: MINERAL OIL/PETROLAT/WATER TOPICAL CREAM 113 GM JAR TP SCH (22:18)
[2018-11-28] MEDS: LISINOPRIL 20 MG TABLET (FP) PO SCH (06:54)
[2018-11-28] MEDS ORDERED: PATIENT'S OWN MEDICATION (NON-FORMULARY) (Amlodipine Besylate/Benazepril [Lotrel 5-40 Mg C PO SCH (07:00)
[2018-11-28] MEDS ORDERED: amLODIPine BESYLATE 5 MG TABLET (FP) PO SCH (07:00)
[2018-11-28] MEDS ORDERED: METHADONE HCL 5 MG TABLET (FOR DETOX USE ONLY) PO ONE (10:00)
[2018-11-28] MEDS: PRENATAL VITAMINS W/ FOLIC ACID TABLET (FP) PO SCH (10:29)
[2018-11-28] MEDS: HYDROCHLOROTHIAZIDE 12.5 MG CAPSULE (FP) PO SCH (10:29)
[2018-11-28] MEDS: NICOTINE 21 MG/24 HOURS TOPICAL PATCH TD SCH (10:31)
[2018-11-28] MEDS: MINERAL OIL/PETROLAT/WATER TOPICAL CREAM 113 GM JAR TP SCH ×2 (10:31→22:23)
--- NOTE | 2018-11-28 15:36 | PN ---
BHS COWS - Scale Resting Pulse: 0= [place] 80 or Below Sweatin= Chills/Flushing Restless Observation: 0= Sits Still Pupil Size: 0= Normal to Room Light Bone or Joint Aches: 2= Severe Diffuse Aches Runny Nose/ Eye Tearin= Runny Nose/Eyes GI Upset > 30mins: 0= None Tremor Observation of Outstretched Hands: 0= None Yawning Observation: 1= 1-2x During Session Anxiety or Irritability: 2=Irritable/Anxious Goose Flesh Skin: 3=[place] COWS Score: 11 BHS Progress Note (SOAP) Subjective: Body Aches, Anxious, Runny Nose, Fatigue, Interrupted Sleep. Objective: PATIENT A & O X 2 (UNCERTAIN ABOUT CURRENT DAY / DATE). IN NO ACUTE DISTRESS. 11/28/18 15:38 Vital Signs Temperature 96.5 F L 11/28/18 09:54 Pulse Rate 61 11/28/18 09:54 Respiratory Rate 18 11/28/18 09:54 Blood Pressure 163/91 11/28/18 09:54 O2 Sat by Pulse Oximetry (%) Laboratory Tests 11/27/18 11/27/18 11/27/18 15:00 15:00 15:00 WBC 9.6 RBC 4.36 Hgb 13.7 Hct 40.1 MCV 92.0 MCH 31.6 MCHC 34.3 RDW 13.5 Plt Count 227 MPV 10.2 Sodium 140 Potassium 4.1 Chloride 102 Carbon Dioxide 32 Anion Gap 5 L BUN 9.9 Creatinine 1.0 Est GFR (CKD-EPI)AfAm 98.46 Est GFR (CKD-EPI)NonAf 84.95 Random Glucose 73 L Calcium 9.3 Total Bilirubin 0.4 AST 21 ALT 22 Alkaline Phosphatase 70 Total Protein 7.6 Albumin 4.1 RPR Titer Nonreactive LABS NOTED. RESULTS OF DETOX ADMISSION QFT /TB TEST PENDING. 11/28/18 15:39 Assessment: 11/28/18 15:39 WITHDRAWAL SYMPTOMS. HYPERTENSION. Plan: CONTINUE DETOX. INCREASE DAILY DOSE OF AMLODIPINE TO 10 MG PO DAILY FOR ELEVATED BP DESPITE PREVIOUS TREATMENT.
[2018-11-28] MEDS ORDERED: amLODIPine BESYLATE 5 MG TABLET (FP) PO ONE (15:38)
[2018-11-28] MEDS: THIAMINE HCL 100 MG TABLET (FP) PO SCH (22:22)
[2018-11-28] MEDS: clonazePAM 0.5 MG TABLET PO PRN (22:23)
[2018-11-28] MEDS: MELATONIN 5 MG TABLETS PO PRN (22:23)
[2018-11-29] MEDS: LISINOPRIL 20 MG TABLET (FP) PO SCH (07:24)
[2018-11-29] MEDS ORDERED: amLODIPine BESYLATE 10 MG TABLET (FP) PO SCH (10:00)
[2018-11-29] MEDS ORDERED: METHADONE HCL 10 MG TABLET (FOR DETOX USE ONLY) PO ONE (10:00)
[2018-11-29] MEDS: HYDROCHLOROTHIAZIDE 12.5 MG CAPSULE (FP) PO SCH (11:23)
[2018-11-29] MEDS: MINERAL OIL/PETROLAT/WATER TOPICAL CREAM 113 GM JAR TP SCH ×2 (11:24→22:40)
[2018-11-29] MEDS: PRENATAL VITAMINS W/ FOLIC ACID TABLET (FP) PO SCH (11:25)
[2018-11-29] MEDS: NICOTINE 21 MG/24 HOURS TOPICAL PATCH TD SCH (11:25)
--- NOTE | 2018-11-29 11:41 | EKG ---
Test Reason : Blood Pressure : / mmHG Vent. Rate : 061 BPM Atrial Rate : 061 BPM P-R Int : 214 ms QRS Dur : 102 ms QT Int : 418 ms P-R-T Axes : 065 016 011 degrees QTc Int : 420 ms SINUS RHYTHM WITH 1ST DEGREE A-V BLOCK OTHERWISE NORMAL ECG WHEN COMPARED WITH ECG OF 18-JUL-2017 18:45, [place] INTERVAL HAS INCREASED Confirmed by SYDNEY ELLIOTT, HEBER ([id number]) on 11/29/2018 11:40:47 AM Referred By: Confirmed By:HEBER GRIMES MD
[2018-11-29] MEDS ORDERED: cloNIDine HCL 0.1 MG TABLET PO PRN (15:31)
--- NOTE | 2018-11-29 15:33 | PN ---
BHS COWS - Scale Resting Pulse: 0= [place] 80 or Below Sweatin= Chills/Flushing Restless Observation: 0= Sits Still Pupil Size: 0= Normal to Room Light Bone or Joint Aches: 1= Mild Discomfort Runny Nose/ Eye Tearin= Nasal Congestion GI Upset > 30mins: 1= Stomach Cramp Tremor Observation of Outstretched Hands: 1= Tremor [place], Not Seen Yawning Observation: 1= 1-2x During Session Anxiety or Irritability: 1=Feels Anxious/Irritable Goose Flesh Skin: 0=Smooth Skin COWS Score: 7 S Progress Note (SOAP) Subjective: 53 years old male admitted on 11/27 for acute opiate withdrawal sx management doing well with methadone detox regimen less tremor mild body aches social with peers in day room "arthritis" joints pain encourage warm shower and mobility Objective: 11/29/18 15:31 Vital Signs Temperature 97.5 F L 11/29/18 14:47 Pulse Rate 78 11/29/18 14:47 Respiratory Rate 18 11/29/18 14:47 Blood Pressure 147/98 11/29/18 14:47 O2 Sat by Pulse Oximetry (%) Laboratory Last Values WBC 9.6 K/mm3 (4.0-10.0) 11/27/18 15:00 RBC 4.36 M/mm3 (4.00-5.60) 11/27/18 15:00 Hgb 13.7 GM/dL (11.7-16.9) 11/27/18 15:00 Hct 40.1 % (35.4-49) 11/27/18 15:00 MCV 92.0 fl (80-96) 11/27/18 15:00 MCH 31.6 pg (25.7-33.7) 11/27/18 15:00 MCHC 34.3 g/dl (32.0-35.9) 11/27/18 15:00 RDW 13.5 % (11.9-15.9) 11/27/18 15:00 Plt Count 227 K/MM3 (134-434) 11/27/18 15:00 MPV 10.2 fl (7.5-11.1) 11/27/18 15:00 Sodium 140 mmol/L (136-145) 11/27/18 15:00 Potassium 4.1 mmol/L (3.5-5.1) 11/27/18 15:00 Chloride 102 mmol/L (98-107) 11/27/18 15:00 Carbon Dioxide 32 mmol/L (21-32) 11/27/18 15:00 Anion Gap 5 MMOL/L (8-16) L 11/27/18 15:00 BUN 9.9 mg/dL (7-18) 11/27/18 15:00 Creatinine 1.0 mg/dL (0.55-1.3) 11/27/18 15:00 Est GFR (CKD-EPI)AfAm 98.46 11/27/18 15:00 Est GFR (CKD-EPI)NonAf 84.95 11/27/18 15:00 Random Glucose 73 mg/dL (74-106) L 11/27/18 15:00 Calcium 9.3 mg/dL (8.5-10.1) 11/27/18 15:00 Total Bilirubin 0.4 mg/dL (0.2-1) 11/27/18 15:00 AST 21 U/L (15-37) 11/27/18 15:00 ALT 22 U/L (13-61) 11/27/18 15:00 Alkaline Phosphatase 70 U/L (45-117) 11/27/18 15:00 Total Protein 7.6 g/dl (6.4-8.2) 11/27/18 15:00 Albumin 4.1 g/dl (3.4-5.0) 11/27/18 15:00 RPR Titer Nonreactive (NONREACTIVE) 11/27/18 15:00 lab noted 11/29/18 15:32 clonidine 0.1 mg po q6h prn Assessment: 11/29/18 15:33 opiate withdrawal sx alert oriented x 3 11/29/18 15:34 S1S2 regular Plan: continue methadone detox regimen
[2018-11-29 21:49] VITALS: BP 153/95; PULSE 62; TEMP 98
[2018-11-29] MEDS: THIAMINE HCL 100 MG TABLET (FP) PO SCH (22:40)
[2018-11-30] MEDS ORDERED: METHADONE HCL 5 MG TABLET (FOR DETOX USE ONLY) PO ONE (06:00)
[2018-11-30] MEDS: LISINOPRIL 20 MG TABLET (FP) PO SCH (06:00)
--- NOTE | 2018-11-30 13:15 | DS ---
[facility] Detox Discharge Summary Admission Date: 11/27/18 Discharge Date: 11/30/18 - History Present History: Opioid Dependence Additional Comments: 53 years old male admitted on 11/27/18 for acute opiate withdrawal sx management doing well with methadone detox regimen no complication through out the detox stay alert oriented x 3 S1S2 Regular discuss 1st degree AV block possible related to alcohol and opiate misuse - Physical Exam Results Vital Signs: Vital Signs Temperature 98 F 11/29/18 21:48 Pulse Rate 62 11/29/18 21:48 Respiratory Rate 18 11/30/18 03:30 Blood Pressure 153/95 11/29/18 21:48 O2 Sat by Pulse Oximetry (%) Pertinent Admission Physical Exam Findings: alcohol and opiate withdrawal sx Laboratory Last Values WBC 9.6 K/mm3 (4.0-10.0) 11/27/18 15:00 RBC 4.36 M/mm3 (4.00-5.60) 11/27/18 15:00 Hgb 13.7 GM/dL (11.7-16.9) 11/27/18 15:00 Hct 40.1 % (35.4-49) 11/27/18 15:00 MCV 92.0 fl (80-96) 11/27/18 15:00 MCH 31.6 pg (25.7-33.7) 11/27/18 15:00 MCHC 34.3 g/dl (32.0-35.9) 11/27/18 15:00 RDW 13.5 % (11.9-15.9) 11/27/18 15:00 Plt Count 227 K/MM3 (134-434) 11/27/18 15:00 MPV 10.2 fl (7.5-11.1) 11/27/18 15:00 Sodium 140 mmol/L (136-145) 11/27/18 15:00 Potassium 4.1 mmol/L (3.5-5.1) 11/27/18 15:00 Chloride 102 mmol/L (98-107) 11/27/18 15:00 Carbon Dioxide 32 mmol/L (21-32) 11/27/18 15:00 Anion Gap 5 MMOL/L (8-16) L 11/27/18 15:00 BUN 9.9 mg/dL (7-18) 11/27/18 15:00 Creatinine 1.0 mg/dL (0.55-1.3) 11/27/18 15:00 Est GFR (CKD-EPI)AfAm 98.46 11/27/18 15:00 Est GFR (CKD-EPI)NonAf 84.95 11/27/18 15:00 Random Glucose 73 mg/dL (74-106) L 11/27/18 15:00 Calcium 9.3 mg/dL (8.5-10.1) 11/27/18 15:00 Total Bilirubin 0.4 mg/dL (0.2-1) 11/27/18 15:00 AST 21 U/L (15-37) 11/27/18 15:00 ALT 22 U/L (13-61) 11/27/18 15:00 Alkaline Phosphatase 70 U/L (45-117) 11/27/18 15:00 Total Protein 7.6 g/dl (6.4-8.2) 11/27/18 15:00 Albumin 4.1 g/dl (3.4-5.0) 11/27/18 15:00 RPR Titer Nonreactive (NONREACTIVE) 11/27/18 15:00 lab noted - Treatment Hospital Course: Detox Protocol Followed, Detoxed Safely, Responded well, Discharged Condition Good, Rehab Referral Accepted Patient has Accepted a Rehab Referral to: new focus - Medication Discharge Medications: Ambulatory Orders Amlodipine Besylate/Benazepril [Lotrel 5-40 mg Capsule] 1 cap PO AM 03/03/16 Amlodipine Besylate [Norvasc -] 5 mg PO AM #0 tablet 11/29/18 Amlodipine Besylate [Norvasc -] 5 mg PO ONCE #0 tablet 11/29/18 Amlodipine Besylate [Norvasc -] 10 mg PO DAILY #30 tablet 11/29/18 Hydrochlorothiazide [Hctz -] 12.5 mg PO DAILY #30 cap 11/29/18 Lisinopril [Prinivil] 40 mg PO AM #30 tablet 11/29/18 - Diagnosis (1) Alcohol dependence with uncomplicated withdrawal Status: Acute (2) Opioid dependence with withdrawal Status: Acute (3) HTN (hypertension) Status: Chronic Qualifiers: Hypertension type: essential hypertension (4) Nicotine dependence Status: Acute Qualifiers: Nicotine product type: cigarettes Substance use status: in withdrawal Qualified Code(s): F17.213 - Nicotine dependence, cigarettes, with withdrawal - AMA Did Patient Leave Against Medical Advice: No CIWA Score - CIWA Score Nausea/Vomitin-No Nausea/No Vomiting Muscle Tremors: 1-None Visible, but [place] Anxiety: 1-Mildly Anxious Agitation: 1-Slight > Activity Paroxysmal Sweats: 1-Minimal Palms Moist Orientation: 0-Oriented Tacttile Disturbances: 0-None Auditory Disturbances: 0-None Visual Disturbances: 0-None Headache: 0-None Present CIWA-Ar Total Score: 4 COWS (PN) - Opiate Withdrawal Resting Pulse: 0= [place] 80 or Below Sweatin= Chills/Flushing Restless Observation: 0= Sits Still Pupil Size: 0= Normal to Room Light Bone or Joint Aches: 0= None Runny Nose/ Eye Tearin= None GI Upset > 30mins: 0= None Tremor Observation of Outstretched Hands: 1= Tremor [place], Not Seen Yawning Observation: 1= 1-2x During Session Anxiety or Irritability: 1=Feels Anxious/Irritable Goose Flesh Skin: 0=Smooth Skin COWS Score: 4
== END 2018-11-30 06:13 | disposition home or self-care (01) | DRG 773 ==
LOC: YASAS 09:25 → Y3N 14:53
PROVIDERS: ADMIT Surgery; ATTEND Surgery
PROC: HZ2ZZZZ Detoxification Services for Substance Abuse Treatment (ICD-10-PCS; principal; 2018-11-27)
DX: F11.23 Opioid dependence with withdrawal (principal); F12.20 Cannabis dependence, uncomplicated; F17.213 Nicotine dependence, cigarettes, with withdrawal; I10 Essential (primary) hypertension; Z87.438 Personal history of other diseases of male genital organs
CPT/HCPCS: 36415; 80053; 85027; 86480; 86593; 93005; 93010

== ENCOUNTER 2022-11-04 07:58 | Emergency (ER) | payer SELFPAY ==
[2022-11-04 08:11] VITALS: BMI 28.1
[2022-11-04] MEDS ORDERED: LISINOPRIL 20 MG TABLET PO ONE (08:54)
[2022-11-04] MEDS ORDERED: HYDROCHLOROTHIAZIDE 12.5 MG CAPSULE (FP) PO ONE (08:56)
[2022-11-04] MEDS ORDERED: LISINOPRIL 20 MG TABLET ONE (08:58)
[2022-11-04] MEDS ORDERED: HYDROCHLOROTHIAZIDE 25 MG TABLET (FP) ONE (08:58)
[2022-11-04] MEDS ORDERED: LIDOCAINE 5% TOPICAL PATCH TP ONE (08:59)
[2022-11-04] MEDS ORDERED: ACETAMINOPHEN 325 MG TABLET (FP) PO ONE (09:01)
[2022-11-04] MEDS ORDERED: ACETAMINOPHEN 325 MG TABLET (FP) ONE (09:10)
[2022-11-04] MEDS ORDERED: LIDOCAINE 5% TOPICAL PATCH ONE (09:10)
[2022-11-04] MEDS ORDERED: amLODIPine BESYLATE 10 MG TABLET (FP) PO ONE (10:45)
[2022-11-04] MEDS ORDERED: amLODIPine BESYLATE 10 MG TABLET (FP) ONE (10:55)
[2022-11-04 12:51] VITALS: BP 175/92; PULSE 63; RESP 16; TEMP 98
[2022-11-04] MEDS ORDERED: LIDOCAINE PATCH REMOVAL MC SCH (22:00)
[2022-11-05] MEDS ORDERED: HYDROCHLOROTHIAZIDE 12.5 MG CAPSULE (FP) PO ONE (12:00)
== END 2022-11-04 13:20 | disposition home or self-care (01) ==
LOC: JER 07:58
DX: I16.0 Hypertensive urgency (principal); M54.9 Dorsalgia, unspecified; R23.2 Flushing; R61 Generalized hyperhidrosis; X50.9XXA Other and unspecified overexertion or strenuous movements or postures, initial encounter; Y93.89 Activity, other specified; Y92.9 Unspecified place or not applicable
CPT/HCPCS: 93005; 93010; 99283-25

== ENCOUNTER 2022-11-26 10:53 | Emergency (ER) | payer SELFPAY ==
[2022-11-26 10:59] VITALS: BP 134/77; PULSE 66; RESP 18; TEMP 98; BMI 29.8
== END 2022-11-26 11:59 | disposition home or self-care (01) ==
LOC: JERFT 10:53
DX: I10 Essential (primary) hypertension (principal); E78.5 Hyperlipidemia, unspecified; Z76.0 Encounter for issue of repeat prescription
CPT/HCPCS: 99282-25

== ENCOUNTER 2022-12-11 10:50 | Emergency (ER) | payer SELFPAY ==
[2022-12-11 10:55] VITALS: BP 151/81; PULSE 72; RESP 18; TEMP 97; BMI 29.8
== END 2022-12-11 12:20 | disposition home or self-care (01) ==
LOC: JERFT 10:50
DX: I10 Essential (primary) hypertension (principal); Z76.0 Encounter for issue of repeat prescription
CPT/HCPCS: 99281-25

== ENCOUNTER 2024-04-08 04:45 | Emergency (ER) | payer OTHER ==
[2024-04-08 04:49] VITALS: BP 138/95; PULSE 98; RESP 18; TEMP 98.4; BMI 27.3
[2024-04-08] MEDS ORDERED: LACTULOSE 20 GM/30 ML UDC (FOR ORAL USE ONLY) ONE (05:10)
[2024-04-08] MEDS ORDERED: POLYETHYLENE GLYCOL (HEALTHYLAX) 3350 17 GM PACKET ONE (05:10)
[2024-04-08] MEDS ORDERED: GLYCERIN 1 RECTAL SUPPOSITORY, PEDIATRIC RC ONE (05:12)
[2024-04-08] MEDS: GLYCERIN 1 RECTAL SUPPOSITORY, ADULT PR ONE (05:21)
[2024-04-08] MEDS: POLYETHYLENE GLYCOL (HEALTHYLAX) 3350 17 GM PACKET PO SCH (05:21)
[2024-04-08] MEDS: LACTULOSE 20 GM/30 ML UDC (FOR ORAL USE ONLY) PO ONE (05:21)
[2024-04-08] MEDS: MINERAL OIL ENEMA 133 ML ENEMA RC ONE (05:52)
== END 2024-04-08 06:37 | disposition home or self-care (01) ==
LOC: JER 04:45
DX: K59.00 Constipation, unspecified (principal)
CPT/HCPCS: 99283-25

== ENCOUNTER 2024-05-27 12:00 | Emergency (ER) | payer OTHER ==
[2024-05-27 12:18] VITALS: BP 157/94; PULSE 73; RESP 18; TEMP 98; BMI 25.0
== END 2024-05-27 12:42 | disposition home or self-care (01) ==
LOC: JERFT 12:00
DX: Z76.0 Encounter for issue of repeat prescription (principal)
CPT/HCPCS: 99281-25